=== PATIENT | male | born 1965 | race Caucasian/White ===

== ENCOUNTER 2019-04-11 10:53 | Outpatient (CLI) | payer OTHER, SELFPAY ==
--- NOTE | 2019-04-11 13:15 | DI.CT_ITS ---
EXAM: CT SINUS WO CLINICAL HISTORY: Severe sinus pain, R>L, J01.90ACUTE SINUSITIS, INFECTION OF SINUS TECHNIQUE: Noncontrast. [employer] protocol. COMPARISON: No exams were available for comparison FINDINGS: There is circumferential mucosal thickening as well as a an air-fluid level in the right maxillary s inus. The left maxillary sinus appears clear. There is mild mucosal thickening of the ethmoid sinus es and right frontal sinus. The nasal cavity appears clear. The nasal septum is deviated toward the left. No gross abnormality is seen in the brain. The orbits are unremarkable. IMPRESSION: Mild chronic an sinusitis. Air-fluid level in the right maxillary sinus could indicate superimposed acute sinusitis.
== END 2019-04-11 11:13 ==
PROVIDERS: PCP Family Medicine; Visit Provider Family Medicine
DX: R51 Headache; J32.8 Other chronic sinusitis
CPT/HCPCS: 70486

== ENCOUNTER 2019-04-11 18:37 | Outpatient (REF) | payer OTHER, SELFPAY ==
[2019-04-11 18:44] LABS: Anion Gap 9.4 mmol/L (3-11); BUN 14 mg/dL (7-18); CO2 30.6 mmol/L (21.0-32.0); CREATININE 1.14 mg/dL (0.70-1.30); Calcium 9.6 mg/dL (8.5-10.1); Chloride 102 mmol/L (98-107); Glucose 96 mg/dL (74-106); Potassium 4.4 mmol/L (3.5-5.1); Sodium 142 mmol/L (136-145)
== END 2019-04-11 18:57 ==
LOC: NCHCN 18:37
PROVIDERS: PCP Family Medicine; Visit Provider Family Medicine
DX: J34.89 Other specified disorders of nose and nasal sinuses (principal)
CPT/HCPCS: 80048

== ENCOUNTER 2020-12-14 03:43 | Outpatient (CLI) | payer OTHER, SELFPAY ==
[2020-12-14 11:12] LABS: ALT 57 U/L (16-63); AST 32 U/L (15-37); Alkaline Phosphatase 80 U/L (46-116); Anion Gap 7.2 mmol/L (3-11); BUN 17 mg/dL (7-18); Bilirubin, Total 0.3 mg/dL (0.2-1.0); CO2 29.8 mmol/L (21.0-32.0); CREATININE 1.1 mg/dL (0.70-1.30); Calcium 9.2 mg/dL (8.5-10.1); Calculated LDL 144 mg/dL (<100); Chloride 106 mmol/L (98-107); Cholesterol 202 mg/dL (<200); Glucose 98 mg/dL (74-106); HDL Cholesterol 32 mg/dL (40-60); Potassium 4.8 mmol/L (3.5-5.1); Sodium 143 mmol/L (136-145); Total Protein 7.1 g/dL (6.4-8.2); Triglyceride 134 mg/dL (<150)
[2020-12-15 11:15] LABS: Hepatitis C Ab w Rflx HCV PCR Negative (Negative)
== END 2020-12-14 03:44 | disposition home or self-care (01) ==
LOC: LBO 03:43
PROVIDERS: PCP Family Medicine; Visit Provider Family Medicine
DX: Z13.220 Encounter for screening for lipoid disorders (principal); Z13.1 Encounter for screening for diabetes mellitus; Z11.59 Encounter for screening for other viral diseases
CPT/HCPCS: 36415; 80053; 80061; 86803

== ENCOUNTER 2021-09-23 05:58 | Day surgery (SDC) | payer OTHER, SELFPAY ==
--- NOTE | 2021-09-22 11:13 | ROE_ITS ---
Date of service: 09/23/21 Time of Service: 09:30 Operative Note Operative Note DATE OF PROCEDURE: 09/23/21 PRE-OP DIAGNOSIS: +Fam Hx CRC POST-OP DIAGNOSIS: other (polyps) SURGEON: Sofi Cota ANESTHESIA TYPE: General:No Airway Refer to Anesthesia Record ESTIMATED BLOOD LOSS: 1 PATHOLOGY: other COMPLICATIONS: None Patient was transported to: same day Patient's condition: stable Procedure Description: After informed consent was obtained the patient was taken to the procedure room and placed in a left decubitous position. Monitors were applied and a time out was done. The patients name, date of , procedure, allergies to medications and metal in their body was reviewed. The patient was then sedated. Once sedated and comfortable a rectal exam was done. External exam was normal. I nternal exam revealed a normal sphincter tone and no palpable masses. The prostate is nl. The scope was then introduced and retrofelexed. Grade 1 internal hemorrhoids were identified. The scope was then advanced to the cecum w/ mild difficulty. His colon is tortuous. The TI and appendiceal orifice were identified. The prep is a BPS 3 in all segments for a total of 9.. The scope was then slowly retracted over 12 minutes back into the rectum. There are no diverticula. The Mucosa is pink and healthy. At 80 cm he has a 0.75 cm polyp on a long stalk. This was removed with a cold snare. All specimen is retrieved and no bleeding is noted. The scope was removed and the patient was woken up and taken back to Same day surgery in stable condition. The patient tolerated the procedure well and there were no immediate complications. Follow up: The patient should follow up in ~5 years unless they develop changes in bowel habits or other new gastrointestinal complaints.
[2021-09-23 06:29] VITALS: BP 121/81; PULSE 77; RESP 16; TEMP 36.5; O2SAT 96
[2021-09-23] MEDS: Lactated Ringers 1,000 ML 80 ML IV (06:47)
--- NOTE | 2021-09-23 07:12 | W.ANESPRE ---
General Info Date of Service Date Performed: 09/23/21 Height: 5 ft 9 in Weight: 88 kg Body Mass Index (BMI): 28.6 Surgical Procedure: Operation Date: 09/23/21 07:35 Proposed Procedure Side Surgeon lauren Cota, Meds Allergies and Home Medications Allergies Allergy/AdvReac Type Severity Reaction Status Date / Time No Known Allergies Allergy Verified 09/23/21 06:28 Home Medication Medication Instructions Recorded albuterol sulfate 90 mcg/actuation 2 puff inhalation Q6H PRN 11/05/18 aerosol inhaler (ProAir HFA) shortness of breath or wheezing #18 grams tadalafil 10 mg tablet (Cialis) 10 mg PO DAILY PRN sexual activity 08/31/20 #10 tabs Current Visit Medications: Current Medications Generic Name Dose Route Start Last Admin Trade Name Freq PRN Reason Stop Dose Admin Hyoscyamine Sulfate 0.125 mg 09/22/21 11:12 Hyoscyamine 0.125 Mg Sl/Oral/Chew SL DIRECTED PRN Ringer's Solution 1,000 mls @ 80 mls/hr 09/23/21 06:00 09/23/21 06:47 IV 10/22/21 23:59 80 mls/hr INFUSION FIDELIA Administration IV Miscellaneous Supplies 1 each 09/23/21 06:00 Iv Access IV 10/22/21 23:59 DIRECTED FIDELIA Ondansetron HCl 4 mg 09/22/21 11:12 Ondansetron 4 Mg/2 Ml Vial IVP Q4H PRN PRN Nausea / Vomiting Sodium Chloride 0 ml 09/23/21 06:00 Normal Saline Flush 10 Ml Syr IV 10/22/21 23:59 PRN PRN Sodium Chloride 0 ml 09/23/21 06:00 Normal Saline 10 Ml Vial IJ 10/22/21 23:59 DIRECTED PRN Sterile Water 0 ml 09/23/21 06:00 Water,Injection,Sterile 10 Ml Vial IJ 10/22/21 23:59 DIRECTED PRN PFSH Active Problems Active Problems: Problem Status Onset Code Encounter for screening for malignant neoplasm of colon Z12.11 Medical History Medical History Family history of colon cancer Grandfather, uncle (50s) Groin strain Lateral epicondylitis, right elbow Medial epicondylitis, left elbow Trigger thumb, left thumb Surgical History Surgical History Lithotripsy (08/29/07) stone Tobacco Smoking/Tobacco Use Status: Never Alcohol Alcohol Intake: never Substance Use Substance use: Never Substance use type: does not use Vital Signs and Lab Results Vital Signs Most Recent Vital Signs in EMR: Most Recent Vital Signs Temp Pulse Resp BP Pulse Ox 36.5 C 77 16 121/81 96 09/23/21 06:29 09/23/21 06:29 09/23/21 06:29 09/23/21 06:29 09/23/21 06:29 Lab Results Blood Type / Crossmatch: No Data to Display Complete Blood Count: No Data to Display Complete Metabolic Panel: No Data to Display Liver Function Panel: No Data to Display Coagulation Panel: No Data to Display Cardiac Panel: No Data to Display Arterial Blood Gas: No Data to Display Venous Blood Gas: No Data to Display Pancreas Panel: No Data to Display Thyroid Panel: No Data to Display Infectious Disease: No Data to Display Blood Cultures: No Data to Display Toxicology Panel: No Data to Display Anesthesia Assessment and Plan Anesthesia History Personal History: No History of Anesthesia Complications Family History: No Family History of Anesthesia Complications Exercise Tolerance Exercise Tolerance: Metabolic Equivalents>4 Pertinent Negatives Pertinent Negatives: No Symptoms of GERD, No Major Cardiovascular Symptoms or Complaints, No Major Pulmonary Symptoms or Complaints and No History of CVA/TIA Cardiac & Pulmonary Exam Cardiac Exam: Normal S1/S2 Heart Sounds Pulmonary Exam: Clear Bilateral Breath Sounds Implantable Cardiac Device Does patient have a Pacemaker or an ICD?: No Airway Exam Known Difficult Airway: No Mallampati Class: 1 Mouth Opening: Normal (> 3cm) Thyromental Distance: Greater than 3 cm Facial Hair: Full Bustamante Neck Range of Motion: Full ROM Neck Circumference: Normal Teeth Condition: Normal Dentition ASA Classification ASA Score: ASA 2 Emergency Case?: No NPO Status NPO Status: NPO Clears >2 hours, Solids >8 hours Anesthesia Plan Resuscitation Status: Full Code Anesthesia Technique: General Anesthesia Airway Planned: Natural Airway Monitors Used: Standard Monitors
[2021-09-23 07:13] VITALS: BMI 28.6
--- NOTE | 2021-09-23 07:40 | BOWEL_PTH ---
PATIENT: Galdino Arana LOC: [facility] U#:[id number] AGE/SX: 56/M ROOM: RE09/23/[address]: Sofi Cota : 1965 BED: DIS: 09/23/2021 SPEC #: [id number] RECD: 09/23/21 10:05 STATUS: VICKY REQ #: [id number] TIANA: 09/23/21 07:[address]: Sofi Cota DEPT: Surgical Specimen RECD BY: Jing Swain ENTERED: 09/23/21 10:06 SP TYPE: Bowel OTHR DR: Steve Valverde DO Tissues: 1 - BIOPSY BOWEL Procedures: GROSS AND MICRO LEVEL 4 Comments: [id number]
[2021-09-23 08:08] VITALS: BP 121/90; PULSE 61; RESP 20; TEMP 36.2; O2SAT 95
--- NOTE | 2021-09-23 08:11 | W.ANESPOSTOP ---
Postoperative Evaluation Date, Time and Location Date Performed: 09/23/21 Time Performed: 08:11 Patient Location: Day Surgery Unit Vital Signs Most Recent Imported Vital Signs: Most Recent Vital Signs Temp Pulse Resp BP Pulse Ox 36.5 C 77 16 121/81 96 09/23/21 06:29 09/23/21 06:29 09/23/21 06:29 09/23/21 06:29 09/23/21 06:29 Most Recent Manually Entered Vital Signs: Adult Blood Pressure: 121/90 Heart Rate: 58 Respirations: 12 Oxygen Saturation (%): 96 Temperature (C): 36.2 C Pain Score (0-10 Scale): 0 Assessment Mental Status: Awake (Alert & Oriented to Patient Baseline) Airway and Respiratory Function: Patent airway with normal (patient baseline) respiratory exam Cardiovascular Function: Hemodynamically Stable Hydration Status: Adequately Hydrated Nausea & Vomiting: No Nausea or Vomiting Pain: Pt. Denies Any Pain Peripheral Nerve Block: Patient did not receive a nerve block
[2021-09-23 08:12] VITALS: BP 121/90; PULSE 58; RESP 12; TEMPC 36.2; O2SAT 96
--- NOTE | 2021-09-23 08:20 | PDOC.DSDIS_ITS ---
Discharge Plan Disposition Patient Disposition: HOME Condition: Good Discharge Details Reason For Visit: colon scope Attending Provider: Sofi Cota Primary Care Provider: Steve Valverde Home Meds and New Rx's Prescriptions: No Action albuterol sulfate [ProAir HFA] 90 mcg/actuation HFA aerosol inhaler 2 puff IH Q6H PRN (Reason: shortness of breath or wheezing) Qty: 18 0RF tadalafil [Cialis] 10 mg tablet 10 mg PO DAILY PRN (Reason: sexual activity) Qty: 10 3RF Rx Instructions: administer approximately 30min before sexual activity; do not use more than 1 dose per 24hrs Discharge Instructions Additional Instructions: DSU Colonoscopy Post- Op Instructions Instructions for Everyone who is given Anesthesia: For your safety, please do the following for the next twenty-four (24) hours: *Do Not operate a motor vehicle (car, truck, motorcycle, etc.) *Do Not drink alcoholic beverages or use any recreational drugs for the first 24 hours or while taking pain medications. The medications in your body may have a reaction that can be dangerous. *Do Not make any important decisions or sign any important papers. Findings: x1 polyp Follow up: My office will send a letter in 2 to 3 weeks time, detailing as to what type of polyp it was and when we want you to repeat the colonoscopy, probably 3 to 5 years time. 1. No lifting over 20 pounds or strenuous activity for the first 24 hours after your procedure. After 24 hours there are no restrictions on your activity but you may feel fatigued for a few days. 2. After you arrive home you may have a light meal and return to your normal diet as you can tolerate it without feeling sick to your stomach. 3. You may have a bloated, gaseous feeling in your belly (abdomen) after a colonoscopy. Passing gas and belching will help. Walking or lying down on your left side with your knees flexed may relieve the discomfort. Call the office at [phone] (Office) or [phone] (Hospital) right away if you notice any of the following: a.Vomiting of blood or ?coffee ground stools?. b.Rectal bleeding 1Tbsp, blood clots or continuous bleeding. c.Severe belly (abdominal) pain. d.A hard distended belly (abdomen) and an inability to pass gas. 4. Please don?t expect to have a normal BM (bowel movement) for 2-3 days after your procedure. 5. If there are questions regarding the findings of your procedure, please contact your doctor 6. If you are unable to contact your doctor with a problem, contact the hospital at [phone]. 7. Continue all your regular medications unless directed otherwise. I understand the above instructions and have no questions. Signature of Patient or Adult Escort Name of Responsible Adult Escort Signature of Nurse Date/Time Activity:: see above Diet:: see above Discharge Orders Discharge Orders: Discharge Order (Routine); Ordered 09/22/21 Ordered By: Sofi Cota DS: Diagnosis Discharge Diagnosis (1) Family history of colon cancer in father: Status: Acute (2) Colon polyp: Status: Acute
[2021-09-23 08:45] VITALS: BP 101/84; PULSE 62; RESP 16; TEMP 36.4; O2SAT 94
== END 2021-09-23 09:20 | disposition home or self-care (01) ==
PROVIDERS: PCP Family Medicine; Visit Provider Surgery
PROC: 0DJD8ZZ Inspection of Lower Intestinal Tract, Via Natural or Artificial Opening Endoscopic (ICD-10-PCS; CPT 45378; principal; 2021-09-23 07:30)
DX: Z12.11 Encounter for screening for malignant neoplasm of colon (principal); K63.5 Polyp of colon; Z80.0 Family history of malignant neoplasm of digestive organs
CPT/HCPCS: 45385; 88305

== ENCOUNTER 2021-09-29 07:45 | Outpatient (CLI) | payer OTHER, SELFPAY ==
[2021-09-30 20:43] LABS: PSA, Diagnostic 1.7 ng/mL (<=3.5)
== END 2021-09-29 07:46 | disposition home or self-care (01) ==
LOC: LBO 07:48
PROVIDERS: PCP Family Medicine; Visit Provider General Practice
DX: N41.9 Inflammatory disease of prostate, unspecified (principal)
CPT/HCPCS: 36415; 84153

== ENCOUNTER 2022-06-16 06:41 | Emergency (ER) | payer OTHER, MEDICAID, SELFPAY ==
--- NOTE | 2022-06-16 06:30 | DI.CT_ITS ---
Exam(s) CT RENAL COLIC WO EXAM: CT RENAL COLIC WO CLINICAL HISTORY: flank pain w/ hx of stone. TECHNIQUE: Imaging Protocol: Axial computed tomography images with coronal and sagittal reformatted images were created and reviewed. CONTRAST MATERIAL: Noncontrast COMPARISON: No exams were available for comparison FINDINGS: ABDOMEN: Lung Bases: Dependent changes. Liver: Normal attenuation. No measurable mass. Gallbladder and biliary tract: No radiodense calculus or dilation. Pancreas: Normal density, no calcifications or inflammatory process. Spleen: Normal. Kidneys: Normal size, contour and axis. There is mild right hydronephrosis secondary to a 4 x 5 estela meter stone in the upper ureter. No additional right renal calculi are seen. There are a few small nonobstructing stones in the left kidney. No masses seen. Adrenal glands: No masses seen. Abdominal Aorta: Abdominal portion non-dilated. Mild atherosclerotic changes. Soft tissues: Unremarkable. PELVIS: Bladder: Symmetric distention, no gross wall thickening. No evidence of stones.No visible mass. Bowel: No obstruction or bowel wall thickening. Reproductive: Peritoneal cavity: No ascites, collection or mesenteric inflammatory response. Bones: Unremarkable for age.. IMPRESSION: Mild right hydronephrosis secondary to a 4 x 5 millimeter stone in the upper right ureter. Additiona l nonobstructing left renal calculi noted. Findings called to Dr. Madrigal of the emergency department. RADIATION DOSE DELIVERED: 914.51mGy.cm Total DLP DATA REPOSITORY: All CT scans at this facility are submitted to the National Radiology Data Registry (NRDR) Dose Index Registry (DIR) with the [employer] (ACR). RADIATION OPTIMIZATION: All CT scans at this facility use at least one of these dose optimization te chniques: automated exposure control; mA and/or kV adjustment per patient size (includes targeted exa ms where dose is matched to clinical indication); or iterative reconstruction.
[2022-06-16 06:47] VITALS: BP 148/82; PULSE 82; TEMP 36.5; O2SAT 97
--- NOTE | 2022-06-16 06:48 | ED.GENADUL_ITS ---
Discharge Plan Discharge Details Chief Complaint: FlankPain Primary Care Provider: Steve Valverde ED Provider: Maxi Haley Home Meds and New Rx's Prescriptions: No Action albuterol sulfate [ProAir HFA] 90 mcg/actuation HFA aerosol inhaler 2 puff IH Q6H PRN (Reason: shortness of breath or wheezing) Qty: 18 0RF tadalafil [Cialis] 10 mg tablet 10 mg PO DAILY PRN (Reason: sexual activity) Qty: 10 3RF Rx Instructions: administer approximately 30min before sexual activity; do not use more than 1 dose per 24hrs Medical Decision Making 56-year-old male with a past medical history of reactive airway disease, kidney stones requiring previous stenting and lithotripsy, presents today for evaluation of right flank pain. Started last night and has continued. It radiates from the right flank down to the groin. He states that it feels identical to his previous kidney stones. He admits to vomiting with pain. He denies any urinary changes otherwise. No other complaints at this time. No other modifying factors. Exam demonstrates right CVA tenderness, remainder of exam is stable. Concern for kidney stone. Will get CT scan, fluids, treat with Toradol, Flomax, and morphine, monitor closely and reassess. Patient will be signed out to my colleague for follow-up on labs and imaging. HPI General Date/Time Provider Initiated Documentation: 06/16/22 06:44 . HPI Narrative: 56-year-old male with a past medical history of reactive airway disease, kidney stones requiring previous stenting and lithotripsy, presents today for evaluation of right flank pain. Started last night and has continued. It radiates from the right flank down to the groin. He states that it feels identical to his previous kidney stones. He admits to vomiting with pain. He denies any urinary changes otherwise. No other complaints at this time. No other modifying factors. Related Data Home Medications Medication Instructions Recorded Confirmed albuterol sulfate 90 mcg/actuation 2 puff inhalation Q6H PRN 11/05/18 09/23/21 aerosol inhaler (ProAir HFA) shortness of breath or wheezing #18 grams tadalafil 10 mg tablet (Cialis) 10 mg PO DAILY PRN sexual activity 11/10/21 #10 tabs Previous Rx's Medication Instructions Recorded albuterol sulfate 90 mcg/actuation 2 puff inhalation Q6H PRN 11/05/18 aerosol inhaler (ProAir HFA) shortness of breath or wheezing #18 grams tadalafil 10 mg tablet (Cialis) 10 mg PO DAILY PRN sexual activity 11/10/21 #10 tabs Allergies Allergy/AdvReac Type Severity Reaction Status Date / Time No Known Allergies Allergy Verified 09/23/21 06:28 Review of Systems All systems reviewed & are unremarkable except as noted in HPI and below PFSH All Active Problems Tubular adenoma of colon (Acute ~09/23/21) Colon polyp (Acute) Family history of colon cancer in father (Acute) Medical History Family history of colon cancer Grandfather, uncle (50s) Groin strain Lateral epicondylitis, right elbow Medial epicondylitis, left elbow Trigger thumb, left thumb Surgical History History of colonoscopy with polypectomy (~09/23/21) Lithotripsy (08/29/07) stone Family History Mother Diabetes Father Alzheimer's dementia Social History Smoking/Tobacco Use Status: Never Smoking risk assessment performed?: Yes Alcohol Intake: never Drug use: Never Substance use type: does not use Household members: spouse Number of Children: 2 Communication Needs: Corrective Lenses current occupation: [employer] Current gender identity: male What is your relationship status?: Panel score (0-1 are the most socially isolated patients): 1 What type of physical activity do you participate in: running Duration: 45-60 minutes/day Frequency: daily Seatbelt use: always Drive intox or ride w/intox electric screw driver operator: No Working smoke detector in home: Yes Carbon monox detector in home: Yes Additional Social history: unable to assess privately Exam Narrative Exam Narrative: 1.Const: Well-nourished, Well-developed, appearing stated age 2.Eyes: PERRL, no conjunctival injection, and symmetrical lids. 3.ENT: Atraumatic external nose and ears. Moist MM. Neck: Symmetric, trachea midline, No thyromegaly. 4.CVS: +S1/S2, No murmurs or gallops. Peripheral pulses 2+ and equal in all extremities. Brisk capillary refill in all extremities. 5.RESP: Unlabored respiratory effort. Clear to auscultation bilaterally. No wheezes rales or rhonchi 6.GI: Soft, right CVA tenderness. Notable right-sided back spasm. Genital exam demonstrates normal cremasteric reflex bilaterally. Mild referred achiness in the right testicle. No focal tenderness of. 7.MSK: Normocephalic/Atraumatic, Extremities w/o deformity or ttp No cyanosis or clubbing, Normal movement of all extremities 8.Skin: Warm, Dry. No rashes or lesions. 9.Neuro: pulp operator II-XII grossly intact. Sensation grossly intact, no focal neurologic deficits. 10.Psych: (AAO) x3. Appropriate mood and affect
[2022-06-16] MEDS: Ketorolac 15 MG/ML VIAL IVP (07:11)
[2022-06-16] MEDS: HYDROmorphone 2 MG/ML SYR 1 MG IVP ×4 (07:11→13:30)
[2022-06-16] MEDS: MORPHine 4 MG/ML SYR IVP (07:12)
[2022-06-16] MEDS: Ondansetron 4 MG/2 ML VIAL IVP ×2 (07:12→13:30)
[2022-06-16] MEDS: Normal Saline 1,000 ML 1000 ML IV (07:13)
[2022-06-16] MEDS: Tamsulosin 0.4 MG CAPCR PO (07:15)
[2022-06-16 07:17] LABS: Abs Immature Grans 0.02 10^3/uL (0.0-0.06); Absolute Basophil Count 0.04 10^3/uL (0.0-0.2); Absolute Lymphocyte Count 2.47 10^3/uL (1.2-3.4); Absolute Monocyte Count 0.95 10^3/uL (0.1-0.8); Absolute Neutrophil Count 4.64 10^3/uL (1.2-6.7); Basophils % 0.5; Eosinophils % 5.8; HCT 44.5 % (40.0-50.0); HGB 15.1 g/dL (13.5-17.5); Immature Grans % 0.2; Lymphocytes % 28.7; MCH 30.4 pg (27.0-33.0); MCHC 33.9 % (32.0-36.0); MCV 90 fL (80-95); MPV 10.2 fL (8.0-11.0); Neutrophils % 53.8; Platelet Count 309 10^3/uL (130-400); RBC 4.96 10^6/uL (4.36-5.78); RDW 11.8 % (11.8-14.1); RDW-SD 38.4 fL; WBC 8.62 10^3/uL (4.4-10.8)
[2022-06-16 07:31] LABS: ALT 31 U/L (16-63); AST 20 U/L (15-37); Albumin 4.1 g/dL (3.4-5.0); Alkaline Phosphatase 84 U/L (46-116); Anion Gap 5.9 mmol/L (3-11); BUN 23 mg/dL (7-18); Bilirubin, Total 0.3 mg/dL (0.2-1.0); CO2 29.1 mmol/L (21.0-32.0); CREATININE 1.3 mg/dL (0.70-1.30); Chloride 103 mmol/L (98-107); Estimated GFR 64.47 (mL/min/1.73m2); Glucose 135 mg/dL (74-106); Potassium 3.9 mmol/L (3.5-5.1); Sodium 138 mmol/L (136-145); Total Protein 7.5 g/dL (6.4-8.2)
[2022-06-16 07:32] LABS: Lipase > 375 U/L (16-77)
[2022-06-16 10:14] LABS: Bilirubin Negative (Negative); Blood Large (Negative); Clarity Sl Cloudy (Clear); Glucose Negative (Negative); Ketones Negative (Negative); Leukocyte Esterase Negative (Negative); Nitrite Negative (Negative); Specific Gravity >= 1.030 (1.005-1.025); Urobilinogen 0.2 mg/dL (Up to 0.2); pH 5.5 (5-8)
[2022-06-16] MEDS: Metoclopramide 10 MG/2 ML VIAL IVP (10:32)
--- NOTE | 2022-06-16 10:32 | W.EDPROG ---
Date of service: 06/16/22 Time of Service: 12:42 Medical Decision Making Patient signed out to me by Dr. Haley. Work-up in progress for obstructive uropathy secondary to kidney stone. CT scan revealed a proximal 5 mm stone on the right. Urine not infected. The patient has had stents placed for the same problem in the past twice. Last time was probably 10 years ago. I discussed the potential need for another stent given the difficulty with the pain management at this time but the patient. I informed him that I do not have urology coverage here at the hospital and that a transfer to [facility] would be for the stenting. At that time the patient decided to be discharged home take my chances, see how it goes. He is afebrile and does not have any signs of infection. Patient was discussed with urology as well as the emergency department at [facility]. The patient is excepted for ED to ED transfer. Dr. Munguia accepting physician Sign Out Sign Out Data: Sign Out Comment: Right-sided flank pain, suspect kidney stone, follow-up on labs and imaging Last updated by Maxi Haley DO at 06/16/22 07:08 Discharge Plan Disposition Patient Disposition: Transfer-Acute Inpatient Care Specific Acute Inpt Facility: [facility] Discharge Details Clinical Impression: Kidney stone Primary Care Provider: Steve Valverde ED Provider: Andreas Madrigal Home Meds and New Rx's Prescriptions: New hydromorphone [Dilaudid] 2 mg tablet 2 mg PO Q6H Qty: 20 0RF tamsulosin [Flomax] 0.4 mg capsule 0.4 mg PO DAILY Qty: 14 0RF ondansetron 4 mg tablet,disintegrating 4 mg PO Q6H Qty: 12 0RF Continued albuterol sulfate [ProAir HFA] 90 mcg/actuation HFA aerosol inhaler 2 puff IH Q6H PRN (Reason: shortness of breath or wheezing) Qty: 18 0RF tadalafil [Cialis] 10 mg tablet 10 mg PO DAILY PRN (Reason: sexual activity) Qty: 10 3RF Rx Instructions: administer approximately 30min before sexual activity; do not use more than 1 dose per 24hrs Discharge Instructions Instructions: Kidney Stones (ED) Additional Instructions: Hydrate yourself well. Please take the medication as prescribed. Please follow-up with urology on Sunday. Return to the emergency department if you have fever
[2022-06-16 10:35] LABS: Bacteria Few HPF (Negative); C & S Indicated? Yes; Casts Negative LPF (Negative); Crystals Negative HPF (Negative); Epithelial Cells Few HPF (Negative); Mucus Moderate (Negative); RBC 20-50 HPF (0-2); WBC 0-2 HPF (0-5)
[2022-06-16] MEDS: cefTRIAXone 1 GM/50 ML BAG IVPB (12:22)
--- NOTE | 2022-06-18 09:44 | NUR.NOTE ---
Nursing Note: Accessed chart to look up whether or not on antibiotic.
== END 2022-06-16 13:33 | disposition short-term general hospital (02) ==
PROVIDERS: Student in an Organized Health Care Education/Training Program; Emergency Provider Emergency Medicine; PCP Family Medicine
DX: N20.0 Calculus of kidney (principal); J45.909 Unspecified asthma, uncomplicated
CPT/HCPCS: 36415; 80053; 83690; 96361; 96365; 96375; 96376; 99285; 74176; 81003; 81015; 85025; 87086; J0696; J1170; J1885; J2270; J2405; J2765

== ENCOUNTER 2022-09-15 21:34 | Emergency (ER) | payer OTHER, SELFPAY ==
[2022-09-15 21:39] VITALS: BP 118/80; PULSE 84; RESP 16; TEMP 36.2; O2SAT 99
--- NOTE | 2022-09-15 21:55 | ED.GENADUL_ITS ---
Discharge Plan Disposition Patient Disposition: Home Condition: Stable Discharge Details Chief Complaint: Laceration Clinical Impression: Puncture wound of forearm, left Primary Care Provider: Steve Valverde ED Provider: Theodore Lance Home Meds and New Rx's Prescriptions: No Action No Known Home Meds Discharge Instructions Instructions: Puncture Wound (ED) Additional Instructions: If you have spreading redness from the wound, severe pain or yellow/white discharge return to the emergency department Medical Decision Making 57 yo male who is not up to date on tetanus vaccine comes in after he was using one of his machete swords that he owns and accidentally put the tip of it into the left forearm. He denies falling or other injuries. HE has a small 0.5cm puncture wound to the left mid forearm, no bleeding, no hematomas, normal distal pulses and sensation with full rom of the wrist, forearm, elbow. NO findings to suggest tendon or neurovascular injury, has intact sensation throughout. I closed the wound with dermabond after irrigation. Will up date tetanus. He states that the sword/machette was intact so do not feel xrays indicated and no palpable foreign bodies palpated. Will d/c and return precautions given Differential Diagnosis Differential Diagnosis: puncture wound HPI General Mode of arrival: ambulatory . Date/Time Provider Initiated Documentation: 09/15/22 21:35 . Limitations to Documentation: no limitations . Information obtained by: patient . History of Present Illness 57 year old M presents to the emergency department with the chief complaint of left arm wound, described as mild, Patient started experiencing this hour(s) (1) and it has been constant. No relieving factors improve symptom(s), No exacerbating factors reported . Patient notes no other symptoms.. Patient did receive the following treatments prior to arrival, none Related Data Home Medications Medication Instructions Recorded Confirmed Unknown [No Known Home Meds] 09/15/22 09/15/22 Allergies Allergy/AdvReac Type Severity Reaction Status Date / Time cats Allergy Uncoded 09/15/22 21:43 General Stated Complaint: Laceration JAJA: 4 Review of Systems All systems reviewed & are unremarkable except as noted in HPI and below Constitutional Constitutional: Denies chills, Denies fever(s) and Denies weakness Cardiovascular Cardiovascular: Denies chest pain and Denies dyspnea Respiratory Respiratory: Denies cough and Denies dyspnea Gastrointestinal Gastrointestinal: Denies abdominal pain, Denies nausea and Denies vomiting Genitourinary Genitourinary: Denies dysuria Musculoskeletal Musculoskeletal: Denies joint swelling Neurologic Neurologic: Denies weakness PFSH All Active Problems (Updated 09/15/22 @ 22:06 by Theodore Lance MD) Puncture wound of forearm, left (Acute) Right ureteral stone (Acute) Lower urinary tract symptoms (LUTS) (Acute) Left nephrolithiasis (Acute) Tubular adenoma of colon (Acute ~09/23/21) Colon polyp (Acute) Family history of colon cancer in father (Acute) Medical History (Updated 09/15/22 @ 22:06 by Theodore Lance MD) Family history of colon cancer Grandfather, uncle (50s) Groin strain Lateral epicondylitis, right elbow Medial epicondylitis, left elbow Trigger thumb, left thumb Surgical History (Updated 06/19/22 @ 11:24 by Hannah Lua) History of colonoscopy with polypectomy (~09/23/21) Lithotripsy (08/29/07) stone S/P ureteral stent placement R Ureretal Stent due to 6mm stone. Placed at [facility] [place] on 06/16/2022 Family History Mother Diabetes Father Alzheimer's dementia Social History Smoking/Tobacco Use Status: Never Smoking risk assessment performed?: Yes Alcohol Intake: never Drug use: Never Substance use type: does not use Household members: spouse Number of Children: 2 Communication Needs: [employer]ive Lenses current occupation: sells on [employer] Current gender identity: male What is your relationship status?: Panel score (0-1 are the most socially isolated patients): 1 What type of physical activity do you participate in: running Duration: 45-60 minutes/day Frequency: daily Seatbelt use: always 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 Working smoke detector in home: Yes Carbon monox detector in home: Yes Additional Social history: unable to assess privately Exam Const General: no acute distress Orientation: alert HENMT Head: normal to inspection Ears: external ears normal General nose exam: external nose normal Mouth: moist mucous membranes Eyes General: appearance normal, both eyes and all related structures Neck Neck: normal visual inspection Resp Effort & Inspection: normal respiratory effort and able to speak in complete sentences Cardio Rate: regular rate Skin General skin exam: no rashes or lesions noted Neuro General: patient alert and patient oriented x3 Psych Mental Status: mental status grossly normal Course Vital Signs Vital signs: Vital Signs Temperature 36.2 C L 09/15/22 21:39 Pulse 84 09/15/22 21:39 Respiratory Rate 16 09/15/22 21:39 Blood Pressure 118/80 09/15/22 21:39 Pulse Oximetry 99 09/15/22 21:39 Temperature 36.2 C L 09/15/22 21:39 Temperature Source Temporal Artery Scan 09/15/22 21:39 Pulse 84 09/15/22 21:39 Respiratory Rate 16 09/15/22 21:39 Respiratory Effort Normal 09/15/22 21:39 Blood Pressure 118/80 09/15/22 21:39 Blood Pressure Position Sitting 09/15/22 21:39 Pulse Oximetry 99 09/15/22 21:39 Oxygen Delivery Method Room Air 09/15/22 21:39 Oxygen Flow Rate 0 09/15/22 21:39 Pain Level 1 09/15/22 21:39
== END 2022-09-15 22:22 | disposition home or self-care (01) ==
PROVIDERS: Emergency Provider Emergency Medicine; PCP Family Medicine
DX: S51.832A Puncture wound without foreign body of left forearm, initial encounter (principal); W26.1XXA Contact with sword or dagger, initial encounter; Y93.89 Activity, other specified; Y92.89 Other specified places as the place of occurrence of the external cause; Y99.9 Unspecified external cause status
CPT/HCPCS: 12001; 36415; 82962; 90472; 96361; 96365; 99283; 99284; 99282

== ENCOUNTER 2023-10-26 12:27 | Outpatient (CLI) | payer OTHER, SELFPAY ==
--- NOTE | 2023-10-26 11:16 | DI.RAD_ITS ---
Exam(s) XR KNEE RT 3V AP,LAT,DEANN EXAM: XR KNEE RT 3V AP,LAT,DEANN CLINICAL HISTORY: ACUTE PAIN OF JOINT RT KNEE, M25.569. TECHNIQUE: 2D digital imaging was performed of the right knee. Three views obtained. AP, lateral an d PA tunnel views were obtained. COMPARISON: No exams were available for comparison FINDINGS: BONES: No acute fracture is present. No bony destructive lesion is seen. JOINTS: The knee is normally aligned. There is a small joint effusion. SOFT TISSUE: Normal. IMPRESSION: 1. No acute fracture or dislocation. 2. Small joint effusion. 3. If there is concern for internal derangement, an MRI should be obtained. DATA REPOSITORY: RADIATION DOSE DELIVERED:
== END 2023-10-26 12:47 ==
PROVIDERS: PCP Family Medicine; Visit Provider Physician Assistant Medical
DX: M25.561 Pain in right knee (principal)
CPT/HCPCS: 73562

== ENCOUNTER 2023-10-29 09:13 | Outpatient (CLI) | payer OTHER, SELFPAY ==
--- NOTE | 2023-10-29 11:50 | DI.MRI_ITS ---
Exam(s) MR LOWER JOINT RT WO EXAM: MR LOWER JOINT RT WO CLINICAL HISTORY: PAIN RT KNEE M25.561. TECHNIQUE: Multiplanar multisequence MRI was performed. COMPARISON: CR XR KNEE RT 3V AP,LAT,DEANN from 10/26/2023 FINDINGS: BONES: There is no fracture or contusion pattern. JOINTS: A small joint effusion is present. Articular cartilage: Patellofemoral joint: Articular cartilage is unremarkable. Medial femoral tibial joint: Mild cartilage irregularity over medial femoral condyle. Lateral femoral tibial joint: Articular cartilage is unremarkable. LIGAMENTS: Anterior Cruciate: Unremarkable. Posterior Cruciate: Unremarkable. Medial Collateral:Unremarkable. Lateral Collateral ligament complex: Unremarkable. TENDONS: Extensor mechanism: Unremarkable. Medial retinaculum: Unremarkable. Lateral retinaculum: Unremarkable. Popliteus: Unremarkable. MENISCI: The medial meniscus is unremarkable. The lateral meniscus is unremarkable. MUSCLES: Edema in popliteus muscle SOFT TISSUES: Small Major's cyst. IMPRESSION: Joint effusion and small Major's cyst. Edema and popliteus muscle could indicate muscle strain. Mild cartilage thinning and irregularity of the medial femoral condyle. DATA REPOSITORY:
== END 2023-10-29 09:33 ==
PROVIDERS: PCP Family Medicine; Visit Provider Physician Assistant Medical
DX: M25.461 Effusion, right knee (principal)
CPT/HCPCS: 73721

== ENCOUNTER 2024-01-30 09:43 | Outpatient (CLI) | payer OTHER, SELFPAY ==
[2024-01-30 09:29] LABS: HGB 15.3 g/dL (13.5-17.5); MCH 29.9 pg (27.0-33.0); MCV 88 fL (80-95); MPV 9.5 fL (8.0-11.0); Platelet Count 236 10^3/uL (130-400); RBC 5.12 10^6/uL (4.36-5.78); RDW 11.7 % (11.8-14.1); RDW-SD 37.5 fL; WBC 6.25 10^3/uL (4.4-10.8)
[2024-01-30 09:46] LABS: Hemoglobin A1C 5.8 % (<5.7)
[2024-01-30 10:33] LABS: BUN 20 mg/dL (7-18); CREATININE 1.2 mg/dL (0.70-1.30); Calcium 9.2 mg/dL (8.5-10.1); Chloride 106 mmol/L (98-107); Glucose 104 mg/dL (74-106); Potassium 4.1 mmol/L (3.5-5.1); Sodium 143 mmol/L (136-145); TSH 4.34 uIU/mL (0.36-3.74); Vitamin B12 516 pg/mL (193-986)
[2024-01-30 11:02] LABS: C-Reactive Protein < 0.50 mg/dL (<or=0.5)
== END 2024-01-30 09:44 | disposition home or self-care (01) ==
LOC: LBO 09:44
PROVIDERS: PCP Family Medicine; Visit Provider Emergency Medicine
DX: E03.9 Hypothyroidism, unspecified (principal); G62.9 Polyneuropathy, unspecified; I10 Essential (primary) hypertension; E11.9 Type 2 diabetes mellitus without complications
CPT/HCPCS: 36415; 80048; 85027; 82607; 83036; 84443; 86140

== ENCOUNTER 2024-04-09 12:36 | Outpatient (CLI) | payer OTHER, SELFPAY ==
[2024-04-09 09:30] LABS: Calculated LDL 140 mg/dL (<100); Cholesterol 199 mg/dL (<200); HDL Cholesterol 45 mg/dL (40-60); Triglyceride 74 mg/dL (<150)
== END 2024-04-09 12:37 | disposition home or self-care (01) ==
LOC: LBO 12:38
PROVIDERS: PCP Family Medicine; Referring Provider Family Medicine; Visit Provider Family Medicine
DX: Z13.6 Encounter for screening for cardiovascular disorders (principal)
CPT/HCPCS: 36415; 80061

== ENCOUNTER 2024-04-23 11:38 | Outpatient (REF) | payer OTHER, SELFPAY ==
[2024-04-23 16:35] LABS: Calculated LDL 176 mg/dL (<100); Cholesterol 236 mg/dL (<200); HDL Cholesterol 45 mg/dL (>or=40); T4 7.6 ug/dL (4.7-13.3); TSH 2.28 uIU/mL (0.36-3.74); Triglyceride 76 mg/dL (<150)
[2024-04-23 22:48] LABS: PSA, Screening 2.1 ng/mL (<=3.5)
[2024-04-24 10:34] LABS: Lyme Ab w Rflx to Lyme Confirm Negative (Negative)
== END 2024-04-23 11:39 | disposition home or self-care (01) ==
LOC: NCHCN 11:38
PROVIDERS: PCP Family Medicine; Visit Provider Family Medicine
DX: Z00.00 Encounter for general adult medical examination without abnormal findings (principal)
CPT/HCPCS: 80061; 84153; 84436; 84443; 84481; 86618

== ENCOUNTER 2024-07-18 17:10 | Outpatient (REF) | payer OTHER, SELFPAY ==
[2024-07-18 15:50] LABS: Abs Immature Grans 0.02 10^3/uL (0.0-0.06); Absolute Basophil Count 0.03 10^3/uL (0.0-0.2); Absolute Eosinophil Count 0.28 10^3/uL (0.0-0.7); Absolute Lymphocyte Count 0.55 10^3/uL (1.2-3.4); Absolute Monocyte Count 0.55 10^3/uL (0.1-0.8); Absolute Neutrophil Count 5.46 10^3/uL (1.2-6.7); Basophils % 0.4 %; Eosinophils % 4.1 %; HCT 45.4 % (40.0-50.0); HGB 15.4 g/dL (13.5-17.5); Immature Grans % 0.3 %; MCH 30.3 pg (27.0-33.0); MCHC 33.9 % (32.0-36.0); MCV 89 fL (80-95); Neutrophils % 79.2 %; Platelet Count 210 10^3/uL (130-400); RBC 5.08 10^6/uL (4.36-5.78); RDW 11.5 % (11.8-14.1); RDW-SD 37.3 fL; WBC 6.89 10^3/uL (4.4-10.8)
[2024-07-18 16:07] LABS: FREE T4 0.89 ng/dL (0.76-1.46); TSH 2.39 uIU/mL (0.36-3.74)
[2024-08-01 11:14] LABS: Testosterone, Free 7.13 ng/dL (3.87-14.7); Testosterone, Total 286 ng/dL (240-950)
== END 2024-07-18 17:11 | disposition home or self-care (01) ==
LOC: NCHCN 17:10
PROVIDERS: PCP Family Medicine; Visit Provider Family Medicine
DX: R53.83 Other fatigue (principal)
CPT/HCPCS: 84402; 84403; 84439; 84443; 85025

== ENCOUNTER 2024-09-03 19:01 | Outpatient (REF) | payer OTHER, SELFPAY ==
[2024-09-03 17:42] LABS: Calculated LDL 156 mg/dL (<100); Cholesterol 207 mg/dL (<200); HDL Cholesterol 38 mg/dL (>or=40); Triglyceride 69 mg/dL (<150)
== END 2024-09-03 19:02 | disposition home or self-care (01) ==
LOC: NCHCN 19:01
PROVIDERS: PCP Family Medicine; Visit Provider Family Medicine
DX: E78.5 Hyperlipidemia, unspecified (principal)
CPT/HCPCS: 80061

== ENCOUNTER 2024-10-05 18:17 | Emergency (ER) | payer OTHER, SELFPAY ==
[2024-10-05] VITALS (29 sets, daily range): BP systolic 125–148; BP diastolic 65–89; PULSE 58–73; RESP 12–23; TEMP 36.8; O2SAT 92–98
--- NOTE | 2024-10-05 18:15 | RT.EKG_ITS ---
APPROVED REPORT Exam: Resting ECG Reason for Exam: CHEST PAIN Patient Location: E HR:68 bpm ECG Measurements Heart Rate 68 AXIS NV 161 P 63 QRSd 90 QRS 86 QT 379 T 44 QTc 402 Conclusion Sinus rhythm, rate 68 No interval abnormalities No STEMI No priors available for comparison
--- NOTE | 2024-10-05 18:30 | DI.CT_ITS ---
Exam(s) CT THORAX ABD/PEL CTA EXAM: CT THORAX ABD/PEL CTA CLINICAL HISTORY: chest pain, boo arm pain, syncope. TECHNIQUE: Imaging Protocol: Axial computed tomography images with coronal and sagittal reformatted images were created and reviewed CONTRAST MATERIAL: Intravenous: Omnipaque 350 Contrast volume:100 ml Oral: None COMPARISON: CT CT RENAL COLIC WO from 06/16/2022 FINDINGS: CTA CHEST: Pulmonary arteries: There are no acute intra luminal filling defects to suggest presence of acute pulmonary emboli. There is no pulmonary infarction. Lungs: No infiltrates nor pleural effusions. No significant focal findings in trachea and mainstem bronchi. There is no bronchiectasis. Mediastinum: There are slightly enlarged hilar and mediastinal lymph nodes and slightly enlarged subcarinal lymph nodes. Cardiac: Heart size is normal. There is no pericardial effusion. Caliber of thoracic aorta is within normal limits. There is no evidence of aortic dissection the there is no significant shift of the interventricular septum. There is no prominent contrast reflux into the intrahepatic IVC. ABDOMEN: There is moderate atherosclerotic involvement of the inferior aspect of the abdominal aorta but without significant aneurysmal dilatation.The common iliac arteries are all flow atherosclerotic and with mild arterial megaly maximum diameter 1.4 cm.There does not appear to be tight stenosis at the junction of the common and external iliac arteries on either side and the external iliac arteries and common femoral arteries are nicely patent. There is significant stenosis at the origin of the right internal iliac artery; less so on the left side. This stenosis at the origin of the celiac artery. No significant stenosis at the origin of the SMA. The inferior mesenteric artery is patent. There are no significant stenosis at the origin of the renal arteries. Left renal artery divides rapidly into 2 vessels. There is no ascites. No significant mesenteric masses. No ischemic appearing bowel loops. LIVER: There are no focal hepatic lesions nor dilatation of intrahepatic ducts. GALLBLADDER/BILIARY: No obvious gallbladder pathology. CBD is not dilated. PANCREAS: No evidence of pancreatic mass nor dilatation of the pancreatic duct. SPLEEN: Spleen is not enlarged. There are no intrasplenic lesions. Splenic and portal veins are patent. ADRENALS: There are no significant adrenal masses. KIDNEYS: There is a small benign cyst in the medial cortex of the right kidney which measures 7 mm. This benign cyst does not require further imaging investigation. No calculi nor hydronephrosis. No solid renal masses. ABDOMINAL AORTA: The abdominal aorta is not enlarged. LYMPH NODES: There is no retroperitoneal nor para-aortic adenopathy. No obvious mesenteric masses. ABDOMINAL WALL: No evidence of significant anterior abdominal wall hernia. GI: There is no evidence of bowel obstruction, free air, nor abscess. PELVIS: LYMPH NODES: There is no intrapelvic nor inguinal adenopathy. GI: There is hyperdense material in the lumen of the appendix but no evidence of acute appendicitis.No evidence of sigmoid diverticulitis. URINARY BLADDER: No calculi nor masses evident REPRODUCTIVE: Prostate size upper normal. Seminal vesicles unremarkable. OSSEOUS: No significant osseous lesions. No fractures. No listhesis. Some facet arthropathy is noted at L4-5 level. IMPRESSION: 1. No evidence of acute pulmonary emboli nor other significant focal lung findings and there are no pleural effusions 2. No evidence of aortic dissection nor pericardial effusion. 3. No acute findings in the abdomen and pelvis. Preliminary virtual Radiology report was reviewed. RADIATION DOSE DELIVERED: Total DLP DATA REPOSITORY: All CT scans at this facility are submitted to the National Radiology Data Registry (NRDR) Dose Index Registry (DIR) with the [employer] (ACR). RADIATION OPTIMIZATION: All CT scans at this facility use at least one of these dose optimization techniques: automated exposure control; mA and/or kV adjustment per patient size (includes targeted exams where dose is matched to clinical indication); or iterative reconstruction.
[2024-10-05 18:38] LABS: Abs Immature Grans 0.02 10^3/uL (0.0-0.06); HCT 40.8 % (40.0-50.0); HGB 13.6 g/dL (13.5-17.5); Immature Grans % 0.3 %; MCH 30.0 pg (27.0-33.0); MCHC 33.3 % (32.0-36.0); MCV 90 fL (80-95); MPV 9.9 fL (8.0-11.0); Platelet Count 229 10^3/uL (130-400); RBC 4.54 10^6/uL (4.36-5.78); RDW 11.9 % (11.8-14.1); RDW-SD 39.2 fL; WBC 6.34 10^3/uL (4.4-10.8)
[2024-10-05 18:59] LABS: ALT 38 U/L (16-63); AST 28 U/L (15-37); Albumin 4.1 g/dL (3.4-5.0); Alkaline Phosphatase 85 U/L (46-116); Anion Gap 7.8 mmol/L (3-11); BUN 19 mg/dL (7-18); Bilirubin, Total 0.4 mg/dL (0.2-1.0); CO2 30.2 mmol/L (21.0-32.0); Calcium 9.1 mg/dL (8.5-10.1); Chloride 107 mmol/L (98-107); Estimated GFR 57.90 (mL/min/1.73m2); Glucose 87 mg/dL (74-106); Lipase 46 U/L (<78); Potassium 4.0 mmol/L (3.5-5.1); Sodium 145 mmol/L (136-145); Total Protein 7.5 g/dL (6.4-8.2); Troponin I 6 ng/L (<or=76)
[2024-10-05] MEDS: Normal Saline - Diluent 50 ML VIAL IJ (19:10)
[2024-10-05] MEDS: Omnipaque 350 MG/ML 100 ML BTL IJ (19:10)
[2024-10-05 20:00] LABS: Troponin I 8 ng/L (<or=76)
--- NOTE | 2024-10-05 21:05 | DI.VRAD_ITS ---
PROCEDURE INFORMATION: Exam: CTA Chest With Contrast CTA Abdomen and Pelvis With Contrast Exam date and time: 10/05/2024 7:10 PM Age: 59 years old Clinical indication: Other: Chest pain, boo arm pain, syncope TECHNIQUE: Imaging protocol: Computed tomographic angiography of the chest with contrast. Exam focused on the arteries. Computed tomographic angiography of the abdomen and pelvis with contrast. Exam focused on the arteries. 3D rendering (Not supervised by radiologist): MIP and/or 3D reconstructed images were created by the technologist. Contrast material: 350; Contrast volume: 100 ml; Contrast route: INTRAVENOUS (IV); COMPARISON: CT RENAL COLIC WO 06/16/2022 8:28 AM FINDINGS: VASCULATURE: Pulmonary arteries: No acute pulmonary embolus. Aorta: There are scattered atheromatous calcifications throughout the aorta and iliac arteries. Atheromatous plaque is present within the infrarenal abdominal aorta with mild stenosis. No aortic aneurysmal dilatation. No aortic dissection. Celiac trunk and mesenteric arteries: No occlusion or significant stenosis. There is an incidentally noted aortic origin of the hepatic artery and the splenic artery. Renal arteries: No occlusion or significant stenosis. Right iliac arteries: No occlusion or significant stenosis. Left iliac arteries: No occlusion or significant stenosis. CHEST: Lungs: The lungs are clear. Pleural spaces: Unremarkable. No pneumothorax. No pleural effusion. Heart: Heart is normal size. No pericardial effusion. ABDOMEN AND PELVIS: Liver: The liver has a normal appearance. Gallbladder and biliary ducts: The gallbladder is unremarkable. No biliary ductal dilatation. Pancreas: The pancreas demonstrates normal size. No pancreatic ductal dilatation. Spleen: The spleen demonstrates normal size. A small splenule is present adjacent to the spleen. Adrenal glands: The adrenal glands have a normal appearance. Kidneys and ureters: The kidneys are normal in size. No nephrolithiasis or hydronephrosis. No hydroureter or ureterolithiasis. Stomach and bowel: The bowel demonstrates overall normal caliber and wall thickness. Appendix: The appendix is thin walled. Intraperitoneal space: Unremarkable. No free air. No significant fluid collection. Urinary bladder: The bladder is thin walled and fluid filled. Reproductive: Unremarkable as visualized. Lymph nodes: No enlarged lymph nodes. Bones/joints: Bones have a normal appearance. No acute fracture or suspicious bone lesion. Soft tissues: Unremarkable. IMPRESSION: 1. No pulmonary embolus. 2. No acute pulmonary findings. 3. No aortic dissection or aneurysmal dilatation. 4. No acute intra-abdominal findings. Normal appendix. Dictated and Authenticated by: Liane Matson MD. Orderin Yessenia Arana MD
[2024-10-05 22:12] LABS: Troponin I 9 ng/L (<or=76)
--- NOTE | 2024-10-05 23:18 | ED.GENADUL_ITS ---
Discharge Plan Disposition Patient Disposition: Against Medical Advice Discharge Details Clinical Impression: Syncope and collapse, Chest pain Primary Care Provider: Steve Valverde ED Provider: Yasmeen Casas Home Meds and New Rx's Prescriptions: No Action No Known Home Meds Discharge Instructions Instructions: Chest Pain (DC), Syncope (Fainting) (DC) Additional Instructions: you are leaving against medical recommendation as we are concerned for abnormal heart rhythm please talk to your doctor about a holter monitor if you develop another episode, my recommendation is to have a reassessment immediately try to rest and hydrate tomorrow as much as possible i recommend a stress test, please discuss this with your doctor as well Referrals: Steve Valverde DO [Primary Care Provider, Medicine] HPI General Date/Time Provider Initiated Documentation: 10/05/24 18:22 . HPI Narrative: The patient is a 59-year-old gentleman who worked outside today and got home at night, took a shower, was laying on the couch when he felt pressure in bilateral arms and palpitations. He states the pain radiated around his back and he stood up quickly to readjust and passed out. He states he had tunnel vision and some mild shortness of breath. He is not sure how long he passed out for. At this time, he feels some mild discomfort, but it's resolving. Otherwise, feels well. He is accompanied by his . He experienced an episode of syncope, characterized by bilateral arm pressure and palpitations, while lying on the couch. The pain radiated to his back. He also reported tunnel vision and mild shortness of breath. The duration of the syncope is uncertain. He reports no systemic symptoms such as fever or chills. He felt well throughout the day while working outdoors in the heat. He reports no calf pain or swelling. He has no personal history of coronary artery disease or tobacco use. He does have hyperlipidemia, for which he does not take medication. He does not smoke or use illicit drugs. Currently, he reports mild discomfort, which is gradually resolving. He is fully alert and oriented, speaking in complete sentences. There is no reproducible chest pain. Related Data Home Medications ?Medication ?Instructions ?Recorded ?Confirmed Unknown [No Known Home Meds] 10/05/24 0 10/05/24 Allergies Allergy/AdvReac Type Severity Reaction Status Date / Time cat dander Allergy Severe unknown Verified 10/05/24 18:24 General Stated Complaint: AMS/LOC JJAA: 2 Exam Narrative Exam Narrative: General Appearance: Fully alert and oriented, speaking in complete sentences. Vital signs: Within normal limits. HEENT: Within normal limits. Respiratory: Within normal limits. Cardiovascular: Distal pulses intact in all extremities. Gastrointestinal: No abdominal bruit or pulsatile mass. Neurological: Fully alert and oriented. Skin: Warm and dry, no rash. Course Vital Signs Vital signs: Vital Signs Temperature 36.8 C 10/05/24 18:20 Pulse 68 10/05/24 18:20 Respiratory Rate 16 10/05/24 18:20 Blood Pressure 135/72 10/05/24 18:20 Pulse Oximetry 98 10/05/24 18:20 Temperature 36.8 C 10/05/24 18:24 Pulse 59 L 10/05/24 21:31 Pulse 58 L 10/05/24 21:31 Respiratory Rate 18 10/05/24 21:31 Respiratory Effort Normal 10/05/24 18:56 Respiratory Depth Normal 10/05/24 18:56 Respiratory Pattern Normal 10/05/24 18:56 Blood Pressure 141/65 H 10/05/24 21:31 Blood Pressure Mean 94 10/05/24 21:31 Pulse Oximetry 96 10/05/24 21:31 Pain Level 0 10/05/24 18:24 Lab/Test Results Lab/Test Results: Laboratory Tests Range/Units 10/05/24 10/05/24 10/05/24 18:30 19:20 21:42 WBC (4.4-10.8) 10^3/uL 6.34 RBC (4.36-5.78) 10^6/uL 4.54 Hgb (13.5-17.5) g/dL 13.6 Hct (40.0-50.0) % 40.8 MCV (80-95) fL 90 MCH (27.0-33.0) pg 30.0 MCHC (32.0-36.0) % 33.3 RDW (11.8-14.1) % 11.9 Plt Count (130-400) 10^3/uL 229 MPV (8.0-11.0) fL 9.9 Immature Gran % % 0.3 Neutrophils % % 56.9 Lymphocytes % % 26.0 Monocytes % % 11.5 Eosinophils % % 5.0 Basophils % % 0.3 Nucleated RBC % (0.0-0.3) % 0.0 Absolute Neutrophils (1.2-6.7) 10^3/uL 3.60 Absolute Lymphocytes (1.2-3.4) 10^3/uL 1.65 Absolute Monocytes (0.1-0.8) 10^3/uL 0.73 Absolute Eosinophils (0.0-0.7) 10^3/uL 0.32 Absolute Basophils (0.0-0.2) 10^3/uL 0.02 Sodium (136-145) mmol/L 145 Potassium (3.5-5.1) mmol/L 4.0 Chloride (98-107) mmol/L 107 Carbon Dioxide (21.0-32.0) mmol/L 30.2 Anion Gap (3-11) mmol/L 7.8 BUN (7-18) mg/dL 19 H Creatinine (0.70-1.30) mg/dL 1.4 H Est GFR (CKD-EPI 2020) (mL/min/1.73m2) 57.90 Glucose (74-106) mg/dL 87 Calcium (8.5-10.1) mg/dL 9.1 Total Bilirubin (0.2-1.0) mg/dL 0.4 AST (15-37) U/L 28 ALT (16-63) U/L 38 Alkaline Phosphatase (46-116) U/L 85 Troponin I (<or=76) ng/L 6 8 9 Total Protein (6.4-8.2) g/dL 7.5 Albumin (3.4-5.0) g/dL 4.1 Lipase (<78) U/L 46 Medical Decision Making - Laboratory Studies: - Two negative troponins - CBC within normal limits - CMP within normal limits - Imaging: - Ordered CTA chest, abdomen, pelvis for aneurysm vs. pulmonary embolism - Testing: - EKG nonischemic, unchanged from prior Initial Assessment: 59-year-old male with syncope after bilateral arm pressure, palpitations, and mild shortness of breath. No history of CAD, tobacco use, or illicit drug use. Untreated hyperlipidemia. Mild peripheral vascular disease. Differential Diagnosis: Aneurysm: Ordered CTA chest, abdomen, pelvis. Pulmonary embolism: Ordered CTA chest, abdomen, pelvis. Dysrhythmia: Recommended telemetry monitoring (declined), outpatient Holter monitor and stress test. ED Course: Ordered CTA chest, abdomen, pelvis. Two negative troponins. CBC, CMP within normal limits. EKG nonischemic, unchanged from prior. Final Assessment: Syncope episode with moderate risk per [place] syncope rule. Negative troponins, normal CBC and CMP, nonischemic EKG. Ordered CTA for aneurysm and pulmonary embolism evaluation. Clinical Impression: Syncope, mild peripheral vascular disease. Disposition: Discharge: Patient declined admission for telemetry monitoring. Advised follow-up with PCP tomorrow. Follow-Up: Holter monitor and stress test outpatient. Follow-up with PCP tomorrow. PFSH All Active Problems (Updated 10/05/24 @ 22:23 by PATRICIA Sharpe) Chest pain (Acute) Syncope and collapse (Acute) Pain in both feet (Acute) Peripheral neuropathy (Acute) Ingrown toenail (Acute) Injury of right knee (Acute) Right ureteral stone (Acute) Lower urinary tract symptoms (LUTS) (Acute) Left nephrolithiasis (Acute) Tubular adenoma of colon (Acute ~09/23/21) Colon polyp (Acute) Family history of colon cancer in father (Acute) Medical History Family history of colon cancer Grandfather, uncle (50s) Trigger thumb, left thumb Groin strain Medial epicondylitis, left elbow Lateral epicondylitis, right elbow Surgical History S/P ureteral stent placement R Ureretal Stent due to 6mm stone. 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
== END 2024-10-05 22:32 | disposition left against medical advice (07) ==
PROVIDERS: Emergency Provider Physician Assistant; PCP Family Medicine
DX: R07.9 Chest pain, unspecified (principal); R55 Syncope and collapse; R00.2 Palpitations; R06.02 Shortness of breath; Z53.29 Procedure and treatment not carried out because of patient's decision for other reasons
CPT/HCPCS: 99284; 99285; 36415; 36416; 82962; 71275; 80053; 83690; 93005; 74174; 84484; 85025; 93010; J3490

== ENCOUNTER 2024-10-24 05:30 | Outpatient (CLI) | payer OTHER, SELFPAY ==
--- NOTE | 2024-10-24 | DI.RAD_ITS ---
Exam(s) XR CERVICAL SPINE COMP 4-5V EXAM: XR CERVICAL SPINE COMP 4-5V CLINICAL HISTORY: CERVICAL RADICULOPATHY, M54.12, CHRONIC NECK PAIN. TECHNIQUE: 2D digital imaging was performed. Five views were performed. COMPARISON: No exams were available for comparison FINDINGS: BONES: No fracture or destructive lesion. Vertebral bodies are unremarkable. There are facet osteophytes causing left neural foraminal encroachment at C3-4. The remaining neural foramen are widely patent. DISKS: Moderate to severe narrowing of the C6-7 disc space. Endplate osteophytes at these levels. The remaining intervertebral disc spaces are maintained. ALIGNMENT: Cervical spinal alignment is within normal limits. The odontoid and atlantoaxial articulations are normal. SOFT TISSUE: Normal. The lung apices are clear. IMPRESSION: Degenerative disc changes at C6-7. Left neural foraminal narrowing at C3-4. DATA REPOSITORY: RADIATION DOSE DELIVERED:
--- NOTE | 2024-10-24 | DI.RAD_ITS ---
Exam(s) XR LUMBAR SPINE COMPLETE EXAM: XR LUMBAR SPINE COMPLETE CLINICAL HISTORY: LUMBAGO LUMBAR REGION WITH SCIATICA, M54.50, ACUTE ON CHRONIC. TECHNIQUE: 2D digital imaging was performed. Five views. COMPARISON: No exams were available for comparison FINDINGS: BONES: No fracture or destructive lesion. Vertebral body heights are maintained. Minimal endplate osteophytes. [id number]-[id number] facet hypertrophy identified at L4-5 and L5-S1. . DISKS: Intervertebral disc spaces are maintained. ALIGNMENT: Lumbar spinal alignment is within normal limits. SOFT TISSUE: Normal. IMPRESSION: Degenerative changes of the facet joints at L4-5 and L5-S1. DATA REPOSITORY: RADIATION DOSE DELIVERED:
== END 2024-10-24 05:50 ==
PROVIDERS: Visit Provider Family Medicine
DX: M51.360 Other intervertebral disc degeneration, lumbar region with discogenic back pain only (principal)
CPT/HCPCS: 72050; 72110